=== PATIENT | female | born 1980 | race Caucasian/White ===

== ENCOUNTER 2018-12-18 11:33 | Emergency (ER) | payer OTHER ==
--- NOTE | 2018-12-18 12:26 | EDM.PDOC ---
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 Had a fever early on in the illness. No rash. Had a negative strep test when seen in the clinic. A co-worker has strep. Onset: Gradual Onset Date: 12/11/18 Duration: Week(s): (1), Constant Location: Reports: Neck (throat and body aches) Quality: Reports: Sharp Severity: Moderate Improves with: Reports: Medication Worsens with: Reports: Other (swallowing) Context: Reports: Sick Contact (co-worker/strep) Associated Symptoms: Reports: Fever/Chills (now improved), Other (body aches). Denies: Rash Treatments KEG WASHER: Reports: Acetaminophen - Related Data Allergies Allergy/AdvReac Type Severity Reaction Status Date / Time morphine Allergy Hives Verified 12/18/18 11:52 Home Meds: Home Meds Codeine/guaiFENesin [Robitussin AC] 5 - 10 ml PO Q4H PRN #1 liquid 12/18/18 [Rx] Venlafaxine [Effexor XR] 12/18/18 [History] Social & Family History - Tobacco Use Smoking Status *Q: Never Smoker ED ROS ENT - Review of Systems Review Of Systems: See Below Constitutional: Reports: No Symptoms (fever resolved) HEENT: Reports: Rhinitis, Throat Pain. Denies: Ear Pain, Eye Discharge, Sinus Problem, Throat Swelling Respiratory: Reports: No Symptoms Cardiovascular: Reports: No Symptoms GI/Abdominal: Reports: No Symptoms : Reports: No Symptoms Musculoskeletal: Reports: No Symptoms Skin: Reports: No Symptoms Neurological: Reports: No Symptoms Psychiatric: Reports: No Symptoms ED EXAM, ENT - Physical Exam Exam: See Below Exam Limited By: No Limitations General Appearance: Alert, WD/WN, No Apparent Distress Eye Exam: Bilateral Eye: Normal Inspection Ears: Normal External Exam, Normal Canal, Hearing Grossly Normal, Normal TMs Nose: Normal Inspection, No Blood Mouth/Throat: Normal Lips, Pharyngeal Erythema, Throat Pain, Other (small exudate on tonsils vs food in tonsillar crypts). No: Normal Oropharynx, Hoarse Voice, Lip Swelling, Muffled Voice, Peritonsillar Mass, Throat Swelling, Tongue Swelling, Tonsillar Swelling, Uvular Deviation, Uvular Edema Head: Atraumatic, Normocephalic Neck: Normal Inspection, Supple, Non-Tender Respiratory/Chest: No Respiratory Distress, Lungs Clear, Normal Breath Sounds, No Accessory Muscle Use Cardiovascular: Regular Rate, Rhythm, No Edema Back: Normal Inspection Extremities: Normal Inspection Neurological: Alert, Oriented, CN II-XII Intact, Normal Cognition, No Motor/ Sensory Deficits Psychiatric: Normal Affect, Normal Mood Skin: Warm, Dry, Intact, Normal Color, No Rash Course - Vital Signs Last Recorded V/S: Last Vital Signs Temp 36.4 C 12/18/18 11:58 Pulse 95 12/18/18 11:58 Resp 21 H 12/18/18 11:58 BP 137/95 H 12/18/18 11:58 Pulse Ox 98 12/18/18 11:58 - Orders/Labs/Meds Orders: Active Orders 24 hr Category Date Time Status CULTURE STREP A CONFIRMATION [] Stat Lab 12/18/18 11:53 Results STREP SCRN A RAPID W CULT CONF [] Stat Lab 12/18/18 11:53 Results Labs: Laboratory Tests 12/18/18 12/18/18 Range/Units 12:20 12:21 WBC 4.2 L (4.5-11.0) K/uL RBC 4.17 (3.30-5.50) M/uL Hgb 12.8 (12.0-15.0) g/dL Hct 38.5 (36.0-48.0) % MCV 92 (80-98) fL MCH 31 (27-31) pg MCHC 33 (32-36) % Plt Count 216 (150-400) K/uL Neut % (Auto) 55 (36-66) % Lymph % (Auto) 36 (24-44) % [place] % (Auto) 7 H (2-6) % Eos % (Auto) 0 L (2-4) % Baso % (Auto) 2 H (0-1) % Monoscreen Negative (NEGATIVE) Departure - Departure Time of Disposition: 12:54 Disposition: Home, Self-Care 01 Condition: Good Clinical Impression: Viral pharyngitis - Discharge Information *PRESCRIPTION DRUG MONITORING PROGRAM REVIEWED*: No *COPY OF PRESCRIPTION DRUG MONITORING REPORT IN PATIENT BETTY: No Prescriptions: Codeine/guaiFENesin [Robitussin AC] 5 - 10 ml PO Q4H PRN #1 liquid PRN Reason: Sore Throat Instructions: Sore Throat, [id number] Referrals: PCP,None [Primary Care Provider] - Forms: ED Department Discharge Additional Instructions: Take acetaminophen and/or ibuprofen for pain relief. Drink ample fluids and get plenty of sleep. Take Robitussin AC as needed for extra throat pain relief. Recheck as needed. - My Orders Last 24 Hours: My Active Orders 12/18/18 11:53 CULTURE STREP A CONFIRMATION [RM] Stat STREP SCRN A RAPID W CULT CONF [RM] Stat - Assessment/Plan Last 24 Hours: My Active Orders 12/18/18 11:53 CULTURE STREP A CONFIRMATION [RM] Stat STREP SCRN A RAPID W CULT CONF [] Stat
== END 2018-12-18 13:05 | disposition home or self-care (01) ==
LOC: JP.ED 11:33
DX: J06.9 Acute upper respiratory infection, unspecified (principal); Z88.5 Allergy status to narcotic agent
CPT/HCPCS: 36415; 85025; 86308; 87081; 87430; 99283